=== PATIENT | female | born 1985 | race Caucasian/White ===

== ENCOUNTER 2017-04-24 20:22 | Emergency (ER) | payer OTHER ==
[~2017-04-24] VITALS: Ht 172.7 cm; Wt 59.0 kg
--- NOTE | 2017-04-24 20:31 | ED HAND/WRIST INJURY COMPLAINT ---
History of Present Illness General Chief Complaint: Laceration Procedure Stated Complaint: LAC TO L THUMB Source: patient Exam Limitations: no limitations Vital Signs & Intake/Output Vital Signs & Intake/Output Vital Signs Date Time Temp Pulse Resp B/P B/P Pulse O2 O2 Flow FiO2 Mean Ox Delivery Rate 04/24 2159 97.2 80 18 120/74 99 04/24 2031 97.7 82 18 122/80 100 Room Air ED Intake and Output 04/25 0000 04/24 1200 Intake Total Output Total Balance Patient 130 lb Weight Weight Reported by Patient Measurement Method Allergies Coded Allergies: No Known Allergies (04/24/17) Triage Nurses Notes Reviewed? yes Occurred: just prior to arrival Duration: minute(s): Timing: single episode today Injury Environment: home Severity: moderate Context: "I was cutting an onion with a new knife." Method of Injury: incised Modifying Factors: Improves With: rest. Associated Symptoms: "I cut through the nail." HPI: 32-year-old woman presents with a laceration to her left second digit. She states that she was cutting an onion with a sharp knife and the knife slipped. She states that the laceration went through the tip of her finger through her fingernail. She is able to move her hand. She is otherwise well and has no other concerns. Past History Travel History Traveled to [place] past 21 day No Medical History Any Pertinent Medical History? none Surgical History Surgical History: none Family History Hx Contributory? No Review of Systems Review of Systems Constitutional: Reports: no symptoms. EENTM: Reports: no symptoms. Respiratory: Reports: no symptoms. Cardiovascular: Reports: no symptoms. GI: Reports: no symptoms. Genitourinary: Reports: no symptoms. Musculoskeletal: Reports: no symptoms. Skin: Reports: no symptoms. Neurological/Psychological: Reports: no symptoms. Hematologic/Endocrine: Reports: no symptoms. Immunologic/Allergic: Reports: no symptoms. All Other Systems: Reviewed and Negative Physical Exam Physical Exam General Appearance: well developed/nourished, mild distress Head: atraumatic Eyes: Bilateral: normal appearance. Ears, Nose, Throat: normal pharynx, normal ENT inspection, hearing grossly normal Neck: normal inspection Cardiovascular/Respiratory: normal breath sounds Hand Left: normal inspection, normal range of motion Hand Right: 2nd finger with 1cm laceration at the distal tip through the nail. Progress Differential Diagnosis: laceration vs other Plan of Care: see below. Departure Departure Disposition: HOME OR SELF CARE Condition: Stable Clinical Impression Primary Impression: Finger laceration Departure Forms: Customer Survey General Discharge Information Procedures Laceration/Wound Repair Laceration/Wound Repair: Wound Location: left second digit, distal tip Wound's Depth, Shape: irregular, linear, into muscle Wound Length (cm): 1 Irrigated w/ Saline (ccs): 100 Betadine Prep? Yes Anesthesia: 1% lidocaine Volume Anesthetic (ccs): 3 Wound Repaired With: sutures, Dermabond Suture Size/Type: 5:0, nylon Number of Sutures: 3 Progress: excellent result... pt to follow up in 2 days for wound check, 7 days to have sutures removed.
[2017-04-24 21:59] VITALS: BP 120/74
== END 2017-04-24 22:01 ==
LOC: ERH 20:22
DX: S61.211A Laceration without foreign body of left index finger without damage to nail, initial encounter (principal); W26.0XXA Contact with knife, initial encounter; Y93.G1 Activity, food preparation and clean up; Y92.9 Unspecified place or not applicable

== ENCOUNTER 2017-04-28 07:50 | Emergency (ER) | payer OTHER ==
[~2017-04-28] VITALS: Ht 172.7 cm; Wt 59.0 kg
[2017-04-28 07:55] VITALS: BP 112/77
--- NOTE | 2017-04-28 07:59 | ED ANIMAL BITE/WOUND CHECK ---
History of Present Illness General Chief Complaint: Suture Removal/Wound Recheck Stated Complaint: WOUND RECHECK Source: patient, old records Exam Limitations: no limitations Vital Signs & Intake/Output Vital Signs & Intake/Output Vital Signs Date Time Temp Pulse Resp B/P B/P Pulse O2 O2 Flow FiO2 Mean Ox Delivery Rate 04/28 0755 97.2 71 16 112/77 99 Room Air Allergies Coded Allergies: No Known Allergies (04/24/17) Reconcile Medications No Known Home Medications Triage Nurses Notes Reviewed? yes : No Patient currently breastfeeds: No HPI: Patient presents to the emergency room for reevaluation of the laceration to her right thumb. Patient states that she is having very minimal pain. There are no fevers or chills. There is no pus drainage. Patient was told to come back for evaluation this morning. Patient has no current complaints. Past History Travel History Traveled to [place] past 21 day No Medical History Any Pertinent Medical History? 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 No Review of Systems Review of Systems Constitutional: Reports: no symptoms. Respiratory: Reports: no symptoms. Cardiovascular: Reports: no symptoms. GI: Reports: no symptoms. Musculoskeletal: Reports: no symptoms. Neurological/Psychological: Reports: no symptoms. Immunologic/Allergic: Reports: no symptoms. Physical Exam Physical Exam General Appearance: well developed/nourished, alert, awake Eyes: Bilateral: PERRL, EOMI. Ears, Nose, Throat: normal pharynx, normal ENT inspection, hearing grossly normal Respiratory: normal breath sounds, chest non-tender, no respiratory distress, lungs clear Cardiovascular: regular rate/rhythm, normal peripheral pulses Extremities: LACERATION IS HEALING, NO SIGNS OF INFECTION Neurologic/Psych: no motor/sensory deficits, awake, alert, oriented x 3, normal gait, normal mood/affect Progress Differential Diagnosis: WOUND CHECK Plan of Care: SUTURE REMOVAL IN 4 DAYS Departure Departure Disposition: HOME OR SELF CARE Condition: Stable Clinical Impression Primary Impression: Visit for wound check Referrals: PATIENT HAS NO PRIMARY CARE DR (PCP/Family) Additional Instructions: KEEP OPEN TO AIR BUT COVER IT IF YOU ARE GOING TO DO ANYTHING THAT MIGHT GET IT DIRTY RETURN IN 4 DAYS FOR SUTURE REMOVAL OR SOONER FOR ANY CONCERNS Departure Forms: Customer Survey General Discharge Information Prescriptions: Current Visit Scripts No Known Home Medications
== END 2017-04-28 08:01 ==
LOC: ERH 07:50
DX: Z48.01 Encounter for change or removal of surgical wound dressing (principal)
CPT/HCPCS: 99281

== ENCOUNTER 2017-05-02 07:55 | Emergency (ER) | payer OTHER ==
[~2017-05-02] VITALS: Ht 172.7 cm; Wt 59.0 kg
[2017-05-02 07:57] VITALS: BP 120/73
--- NOTE | 2017-05-02 08:10 | ED GENERAL ADULT ---
History of Present Illness General Chief Complaint: Suture Removal/Wound Recheck Stated Complaint: SUTURE REMOVAL Source: patient Exam Limitations: no limitations Vital Signs & Intake/Output Vital Signs & Intake/Output Vital Signs Date Time Temp Pulse Resp B/P B/P Pulse O2 O2 Flow FiO2 Mean Ox Delivery Rate 05/02 0759 96 05/02 0757 97.5 70 16 120/73 96 Room Air Allergies Coded Allergies: No Known Allergies (04/24/17) Reconcile Medications No Known Home Medications Triage Note: PT HERE FOR SUTURE REMOVAL LEFT THUMB Triage Nurses Notes Reviewed? yes : No Patient currently breastfeeds: No HPI: 32 y/o otherwise healthy female presenting for suture removal of sutures to left thumb. Sutures were placed 8 days ago for lac sustained with kitchen knife. Denies numbness or paresthesias. Past History Travel History Traveled to [place] past 21 day No Medical History Any Pertinent Medical History? 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 No Review of Systems Review of Systems Constitutional: Reports: no symptoms. Respiratory: Reports: no symptoms. Cardiovascular: Reports: no symptoms. Musculoskeletal: Reports: no symptoms. Skin: Reports: see HPI. Neurological/Psychological: Reports: no symptoms. Physical Exam Physical Exam General Appearance: well developed/nourished, no apparent distress Head: atraumatic Respiratory: normal breath sounds, lungs clear Cardiovascular: regular rate/rhythm Skin: Wound to left thumnb appears to be well healed with good skin approximation, no purulent drainage or erythema. Core Measures ACS in differential dx? No CVA/TIA Diagnosis: No Severe Sepsis Present: No Septic Shock Present: No Progress Differential Diagnoses I considered the following diagnoses in my evaluation of the patient: [well healed lac vs wound separation vs wound infection] Plan of Care: Removed 2 sutures from left thumb, skin remained well approximated after suture removal. Initial ED EKG: none Departure Departure Disposition: HOME OR SELF CARE Condition: Stable Clinical Impression Primary Impression: Visit for suture removal Referrals: PATIENT HAS NO PRIMARY CARE DR (PCP/Family) Additional Instructions: Continue to keep wound clean and dry. Return to the ED for any new or worsening symptoms. Departure Forms: Customer Survey General Discharge Information Prescriptions: Current Visit Scripts No Known Home Medications Critical Care Note Critical Care Note Critical Care Time: non-applicable
== END 2017-05-02 08:15 ==
LOC: ERH 07:55
DX: S61.012A Laceration without foreign body of left thumb without damage to nail, initial encounter (principal); W26.0XXA Contact with knife, initial encounter; Y92.9 Unspecified place or not applicable; Y93.9 Activity, unspecified
CPT/HCPCS: 99281